=== PATIENT | male | born 1960 | race Caucasian/White ===

== ENCOUNTER 2017-09-26 08:47 | Day surgery (SDC) | payer OTHER ==
[2017-09-25 15:40] VITALS: BP 113/62
[2017-09-25 15:42] LABS: EOSINOPHILS % (AUTO) 2.4 % (0.0-8.0); HEMATOCRIT 37.9 % (42-54); LYMPHOCYTES % (AUTO) 30.5 % (21.0-51.0); MEAN CORPUSCULAR HEMOGLOBIN 31.5 pg (27.0-33.0); MEAN CORPUSCULAR HGB CONC 33.6 g/dL (32.0-36.0); MEAN CORPUSCULAR VOLUME 93.9 fL (79-99); MONOCYTES % (AUTO) 5.8 % (3.0-13.0); NEUTROPHILS % (AUTO) 60.3 % (40.0-77.0); PLATELET COUNT (AUTO) 273 K/uL (130-400); RED BLOOD CELL COUNT(AUTO) 4.03 MIL/uL (4.50-6.20); RED CELL DISTRIBUTION WIDTH 13.7 % (11.0-15.5); WHITE BLOOD COUNT (AUTO) 6.7 K/uL (4.8-10.8)
[2017-09-25 15:50] LABS: CREATININE 0.9 mg/dL (0.5-1.5); POTASSIUM 4.1 mmol/L (3.5-5.1)
[~2017-09-26] VITALS: Ht 172.7 cm; Wt 79.4 kg
[2017-09-26] VITALS (14 sets, daily range): BP systolic 108–150; BP diastolic 65–98
[~2017-09-26 08:47] MED LIST: ATOR40TA71 PO; BUPR100T6 PO; CARB15DR94 OU; CEFAZOLIN SODIUM 1 GM VIAL IVP SCH; DICL50TA9 PO; FLUO20CA30 PO; OMEP20CA10 PO; OXYC-586 PO; PRAZ5CAP2 PO; TRAZ-147 PO; WATER FOR INJECTION,STERILE 20 ML VIAL IJ SCH
[2017-09-26] MEDS ORDERED: LACTATED RINGERS 1000ML 1,000 ML IV ONE (10:02)
[2017-09-26] MEDS ORDERED: DEXAMETHASONE SOD PHOSPHATE 10MG/ML 1ML VIAL ONE (10:38)
[2017-09-26] MEDS ORDERED: ONDANSETRON HCL 4 MG/2 ML VIAL ONE (10:38)
[2017-09-26] MEDS ORDERED: NEOSTIGMINE METHYLSULFATE 1MG/ML IV ONE (10:39)
[2017-09-26] MEDS ORDERED: SUCCINYLCHOLINE 200MG/10ML SYR ONE ×2 (10:39→13:00)
[2017-09-26] MEDS ORDERED: FENTANYL CITRATE PF 50 MCG/1 ML 2ML VIAL ONE ×3 (10:40→13:52)
[2017-09-26] MEDS ORDERED: PROPOFOL 10 MG/ML 20ML VIAL IV ONE (10:40)
[2017-09-26] MEDS ORDERED: MIDAZOLAM HCL 1 MG/ML 2ML VIAL ONE (10:40)
[2017-09-26] MEDS ORDERED: EPINEPHRINE 1 MG/ML 30ML VIAL IJ ONE (10:42)
[2017-09-26] MEDS ORDERED: CLINDAMYCIN 900 MG/D5% WATER 50 ML IV ONE (12:05)
[2017-09-26] MEDS ORDERED: ROPIVACAINE 0.5% 5MG/ML 30ML IJ ONE (12:52)
[2017-09-26] MEDS ORDERED: ROCURONIUM BROMIDE 10MG/1ML 5ML VL ONE ×2 (13:00)
[2017-09-26] MEDS ORDERED: EPHEDRINE SULFATE 50 MG/ML AMPULE ONE (14:02)
[2017-09-26] MEDS ORDERED: MEPERIDINE-PF 25 MG/ML SYG ONE (14:54)
== END 2017-09-26 17:00 | disposition home or self-care (01) ==
LOC: DAH 08:47
PROVIDERS: ATTEND Orthopaedic Surgery
DX: S43.431A Superior glenoid labrum lesion of right shoulder, initial encounter (principal); M25.811 Other specified joint disorders, right shoulder; E78.5 Hyperlipidemia, unspecified; F32.9 Major depressive disorder, single episode, unspecified; F41.9 Anxiety disorder, unspecified; K21.9 Gastro-esophageal reflux disease without esophagitis; F43.10 Post-traumatic stress disorder, unspecified; Z98.890 Other specified postprocedural states; Z88.8 Allergy status to other drugs, medicaments and biological substances; X58.XXXA Exposure to other specified factors, initial encounter; Y93.89 Activity, other specified; Y92.89 Other specified places as the place of occurrence of the external cause; Y99.8 Other external cause status; I10 Essential (primary) hypertension
CPT/HCPCS: 29823; 29824; 36415; 80048; 85025; A4565; A4649 ×4; A4930; A6204 ×2; C1713; G0168; J0171; J0330 ×2; J1100; J2175; J2250; J2405; J2704; J2710; J2795; J3010 ×3; J3490 ×4; J7030; J7120; J0690

== ENCOUNTER 2018-08-31 06:06 | Day surgery (SDC) | payer OTHER ==
[2018-08-28 12:12] VITALS: BP 118/76
[2018-08-28 12:16] LABS: BASOPHILS % (AUTO) 0.7 % (0.0-5.0); EOSINOPHILS % (AUTO) 2.9 % (0.0-8.0); HEMATOCRIT 39.5 % (42-54); LYMPHOCYTES % (AUTO) 29.1 % (21.0-51.0); MEAN CORPUSCULAR HEMOGLOBIN 31.6 pg (27.0-33.0); MEAN CORPUSCULAR VOLUME 92.9 fL (79-99); MONOCYTES % (AUTO) 6.6 % (3.0-13.0); NEUTROPHILS % (AUTO) 60.7 % (40.0-77.0); NUCLEATED RED BLOOD CELLS 0.1 % (0.0-0.19); PLATELET COUNT (AUTO) 248 K/uL (130-400); RED BLOOD CELL COUNT(AUTO) 4.26 MIL/uL (4.50-6.20); RED CELL DISTRIBUTION WIDTH 13.8 % (11.0-15.5); WHITE BLOOD COUNT (AUTO) 6.8 K/uL (4.8-10.8)
[2018-08-28 12:29] LABS: POTASSIUM 4.4 mmol/L (3.5-5.1)
[2018-08-31] VITALS (13 sets, daily range): BP systolic 114–132; BP diastolic 60–86
[~2018-08-31] VITALS: Ht 175.3 cm; Wt 81.0 kg
[~2018-08-31 06:06] MED LIST changes: +BUPR100T13 PO; -CARB15DR94 OU; -CEFAZOLIN SODIUM 1 GM VIAL IVP SCH; +CELE100C PO; -DICL50TA9 PO; +MIRT30TA6 PO; -OXYC-586 PO; -PRAZ5CAP2 PO; -TRAZ-147 PO; +TRAZ150T79 PO; -WATER FOR INJECTION,STERILE 20 ML VIAL IJ SCH
[2018-08-31] MEDS ORDERED: LACTATED RINGERS 1000ML 1,000 ML IV ONE (07:05)
[2018-08-31] MEDS ORDERED: CLINDAMYCIN 900 MG/D5% WATER 50 ML IV ONE (07:05)
[2018-08-31] MEDS ORDERED: CLINDAMYCIN PHOSPHATE 150 MG/ML 6ML VIAL ONE (07:41)
[2018-08-31] MEDS ORDERED: SUCCINYLCHOLINE 200MG/10ML SYR ONE (07:53)
[2018-08-31] MEDS ORDERED: LIDOCAINE PF 2% 5ML ABBOJECT ONE (07:53)
[2018-08-31] MEDS ORDERED: PROPOFOL 10 MG/ML 20ML VIAL IV ONE ×2 (07:54→10:13)
[2018-08-31] MEDS ORDERED: MIDAZOLAM HCL 1 MG/ML 2ML VIAL ONE (07:54)
[2018-08-31] MEDS ORDERED: ONDANSETRON HCL 4 MG/2 ML VIAL ONE (07:54)
[2018-08-31] MEDS ORDERED: NEOSTIGMINE 5MG/5ML SYR IV ONE (07:54)
[2018-08-31] MEDS ORDERED: DEXAMETHASONE SOD PHOSPHATE 10MG/ML 1ML VIAL ONE (07:54)
[2018-08-31] MEDS ORDERED: GLYCOPYRROLATE 1 MG/5 ML SYRINGE ONE (07:54)
[2018-08-31] MEDS ORDERED: ROCURONIUM 10MG/1ML SYR 10 MG/ML ML ONE (07:54)
[2018-08-31] MEDS ORDERED: FENTANYL CITRATE PF 50 MCG/1 ML 2ML VIAL ONE (07:55)
[2018-08-31] MEDS ORDERED: ROPIVACAINE 0.5% 5MG/ML 30ML IJ ONE (08:02)
[2018-08-31] MEDS ORDERED: MEPERIDINE-PF 25 MG/ML SYG ONE (11:01)
[2018-08-31] MEDS ORDERED: CLIN300C3 PO (12:03)
[2018-08-31] MEDS ORDERED: HYDR-4457 PO (12:03)
== END 2018-08-31 13:00 | disposition home or self-care (01) ==
LOC: SUH 06:06 → DAH 06:06 → SUH 13:00
PROVIDERS: ATTEND Orthopaedic Surgery
DX: M75.21 Bicipital tendinitis, right shoulder (principal); Z98.890 Other specified postprocedural states; Z79.899 Other long term (current) drug therapy; E78.5 Hyperlipidemia, unspecified; F32.9 Major depressive disorder, single episode, unspecified; F41.9 Anxiety disorder, unspecified; K21.9 Gastro-esophageal reflux disease without esophagitis; Z88.8 Allergy status to other drugs, medicaments and biological substances; E66.9 Obesity, unspecified
CPT/HCPCS: 23430; 36415; 80048; 85025; 88304; A4565; A4649; A4930; A6207; C1713; G0168; J0330; J1100; J2001; J2175; J2250; J2405; J2704 ×2; J2710; J2795; J3010; J3490 ×2; J7120 ×2

== ENCOUNTER 2019-12-15 09:15 | Day surgery (SDC) | payer OTHER ==
[2019-12-13 11:37] VITALS: BP 148/78
[2019-12-13 11:37] LABS: EOSINOPHILS % (AUTO) 7.6 % (0.0-8.0); HEMATOCRIT 43.9 % (42-54); LYMPHOCYTES % (AUTO) 31.5 % (21.0-51.0); MEAN CORPUSCULAR HEMOGLOBIN 29.5 pg (27.0-33.0); MEAN CORPUSCULAR HGB CONC 32.3 g/dL (32.0-36.0); MEAN CORPUSCULAR VOLUME 91.3 fL (79-99); MONOCYTES % (AUTO) 7.7 % (3.0-13.0); PLATELET COUNT (AUTO) 270 K/uL (130-400); RED BLOOD CELL COUNT(AUTO) 4.81 MIL/uL (4.50-6.20); RED CELL DISTRIBUTION WIDTH 13.8 % (11.0-15.5); WHITE BLOOD COUNT (AUTO) 8.2 K/uL (4.8-10.8)
[2019-12-13 11:47] LABS: CREATININE 1.1 mg/dL (0.5-1.5)
[2019-12-13] MEDS: CLINDAMYCIN 900 MG/D5% WATER 50 ML IV SCH (12:30)
--- NOTE | 2019-12-14 10:20 | NUR ---
ABNORMAL LAB: MELVA AMADOR CRNA NOTIFIED OF POTASSIUM RESULT OF 5.0, NO ORDERS GIVEN. OK TO PROCEED WITH SURGERY.
[~2019-12-15] VITALS: Ht 175.3 cm; Wt 88.5 kg
[2019-12-15] VITALS (10 sets, daily range): BP systolic 115–149; BP diastolic 72–84
[~2019-12-15 09:15] MED LIST changes: -BUPR100T13 PO; -BUPR100T6 PO; -FLUO20CA30 PO; +HYDR-3422 PO; +METH750T3 PO; -MIRT30TA6 PO; -OMEP20CA10 PO; +OMEP20CA12 PO; +TRAZ-187 PO; -TRAZ150T79 PO
[2019-12-15] MEDS ORDERED: LACTATED RINGERS 1000ML 1,000 ML IV ONE (10:11)
[2019-12-15] MEDS ORDERED: CLINDAMYCIN 900 MG/D5% WATER 50 ML IV ONE (10:11)
--- NOTE | 2019-12-15 10:15 | NUR ---
PAIN pt states has pain when moving left arm and shoulder ,no pain at rest Addendum: 12/15/19 at 1055 by DARINEL CABRERA RN RN Amended: Links added.
[2019-12-15] MEDS ORDERED: LIDOCAINE PF 2% 5ML ABBOJECT ONE (14:33)
[2019-12-15] MEDS ORDERED: DEXAMETHASONE SOD PHOSPHATE 10MG/ML 1ML VIAL ONE (14:33)
[2019-12-15] MEDS ORDERED: MIDAZOLAM HCL 1 MG/ML 2ML VIAL ONE (14:33)
[2019-12-15] MEDS ORDERED: PROPOFOL 10 MG/ML 20ML VIAL IV ONE ×2 (14:33→16:44)
[2019-12-15] MEDS ORDERED: ONDANSETRON HCL 4 MG/2 ML VIAL ONE ×2 (14:34→17:22)
[2019-12-15] MEDS ORDERED: FENTANYL CITRATE PF 50 MCG/1 ML 2ML VIAL ONE ×2 (14:34→16:42)
[2019-12-15] MEDS ORDERED: ROCURONIUM 10MG/1ML SYR 10 MG/ML ML ONE ×2 (14:34→15:23)
[2019-12-15] MEDS ORDERED: ROPIVACAINE 0.5% 5MG/ML 30ML IJ ONE (14:38)
[2019-12-15] MEDS ORDERED: EPINEPHRINE 1 MG/ML 30ML VIAL IJ ONE (14:44)
[2019-12-15] MEDS: CLINDAMYCIN 900 MG/D5% WATER 50 ML IV SCH (14:55)
[2019-12-15] MEDS ORDERED: EPHEDRINE SULFATE 50 MG/ML AMPULE ONE ×2 (14:55→15:21)
[2019-12-15] MEDS ORDERED: GLYCOPYRROLATE 1 MG/5 ML SYRINGE ONE (15:01)
[2019-12-15] MEDS ORDERED: NEOSTIGMINE 5MG/5ML SYR IV ONE (15:01)
[2019-12-15] MEDS ORDERED: CLIN300C3 PO (16:52)
[2019-12-15] MEDS ORDERED: HYDR-4060 PO (16:52)
[2019-12-15] MEDS ORDERED: METOCLOPRAMIDE 10 MG/2 ML VIAL ONE (17:32)
== END 2019-12-15 18:18 | disposition home or self-care (01) ==
LOC: DAH 09:15 → SUH 09:15
PROVIDERS: ATTEND Orthopaedic Surgery
DX: M19.012 Primary osteoarthritis, left shoulder (principal); M24.112 Other articular cartilage disorders, left shoulder; M75.82 Other shoulder lesions, left shoulder; M75.42 Impingement syndrome of left shoulder; M25.512 Pain in left shoulder; G89.29 Other chronic pain; F32.9 Major depressive disorder, single episode, unspecified; F41.9 Anxiety disorder, unspecified; E78.5 Hyperlipidemia, unspecified; K21.9 Gastro-esophageal reflux disease without esophagitis; E66.9 Obesity, unspecified; Z79.899 Other long term (current) drug therapy; Z79.2 Long term (current) use of antibiotics; Z87.891 Personal history of nicotine dependence; Z88.8 Allergy status to other drugs, medicaments and biological substances; Z88.2 Allergy status to sulfonamides; Z98.890 Other specified postprocedural states; Z83.3 Family history of diabetes mellitus; Z82.49 Family history of ischemic heart disease and other diseases of the circulatory system; Z68.28 Body mass index [BMI] 28.0-28.9, adult
CPT/HCPCS: 29822; 29824; 29826; 36415; 64415; 76942; 80048; 85025; A4215; A4221; A4222; A4223; A4565; A4600; A4649 ×2; A4663; A4930; A5120; A6204; G0168; J0171; J1100; J2001; J2250; J2405 ×2; J2704 ×2; J2710; J2765; J2795; J3010 ×2; J3490 ×4; J7030; J7120 ×2